=== PATIENT | male | born 1965 | race Caucasian/White ===

== ENCOUNTER 2022-12-27 09:38 | Emergency (ER) | payer OTHER, SELFPAY ==
[2022-12-27] VITALS (15 sets, daily range): BP systolic 130–168; BP diastolic 81–117; PULSE 86–103; RESP 14–24; TEMP 36.8; O2SAT 94–100
[2022-12-27] MEDS: SODIUM CHLORIDE 0.9% IV 1,000 ML 999 ML IV CONT (10:15)
[2022-12-27 10:22] LABS: Basophils Absolute Auto 0.1 K/mm3 (0.0-0.1); Basophils Percent Auto 2.3 % (0.2-1.2); Eosinophils Percent Auto 0.2 % (0-4.4); Hematocrit 36.1 % (42.0-52.0); Hemoglobin 11.6 g/dL (14.0-18.0); Immature Granulocyte Absolute 0.01 K/mm3 (0.00-0.031); Immature Granulocyte Percent A 0.2 % (0-0.5); Lymphocytes Absolute Auto 1.16 K/mm3 (0.9-3.2); Lymphocytes Percent Auto 26.4 % (18.3-44.2); Mean Corpuscular HGB Conc 32.1 g/dl (32-36); Mean Corpuscular Hemoglobin 25.6 pg (26-34); Mean Corpuscular Volume 79.5 fl (80-100); Mean Platelet Volume 8.6 fl (7.4-10.4); Monocytes Absolute Auto 0.6 K/mm3 (0.1-0.6); Monocytes Percent Auto 14.1 % (2.6-8.5); Neutrophils Absolute Auto 2.5 K/mm3 (1.3-6.7); Neutrophils Percent Auto 56.8 % (45.5-73.1); Platelet Count Result 231 k/mm3 (150-375); Red Blood Count 4.54 M/mm3 (4.6-6.20); Red Cell Distribution Width 20.1 % (11.5-14.5); White Blood Count 4.4 K/mm3 (4.5-10.0)
[2022-12-27 10:31] LABS: Ethanol 231 mg/dL (<10)
--- NOTE | 2022-12-27 10:32 | PC.NURSE ---
[id number] 88% while sleeping on room air.
[2022-12-27 10:35] LABS: Partial Thromboplastin Time 31.3 SECONDS (22.3-36.8); Prothrombin Time 13.8 Seconds (11.1-14.7)
[2022-12-27 11:02] LABS: Appearance Urine Clear (Clear); Bacteria Urine None Seen /hpf; Bilirubin Urine Negative (Negative); Blood Urine Negative (Negative); Color Urine Yellow (Yellow); Glucose Urine UA Negative (Negative); Ketones Urine Trace mg/dL (Negative); Leukocyte Esterase Ur Negative LEU/UL (Negative); Nitrate Urine Negative (Negative); Non Pathogenic Casts 0-2; Protein Urine Trace mg/dL (Negative); RBC Urine 0-2 /hpf (0-2); Specific Grav Ur 1.008 (1.001-1.035); Squamous Epithelial Cell Urine None seen /hpf (Few); Urobilinogen Urine 0.2 mg/dL (<2.0); WBC Urine 0-5 /hpf; pH Urine 5.5 (5.0-9.0)
[2022-12-27 11:02] LABS: Alanine Aminotransferase 27 U/L (6-50); Alkaline Phosphatase 82 U/L (38-126); Anion Gap 13 mmol/L (8-16); Aspartate Amino Transferase 45 U/L (17-59); Bilirubin,Total 0.6 mg/dL (0.2-1.3); Blood Urea Nitrogen 14 mg/dL (9-20); Calcium 8.2 mg/dL (8.4-10.2); Carbon Dioxide 26 mmol/L (22-30); Chloride 93 mmol/L (98-107); Estimated Glomerular Filt Rate > 60; Glucose 117 mg/dL (65-110); Potassium 3.7 mmol/L (3.4-5.0); Sodium 132 mmol/L (137-145)
[2022-12-27 11:09] LABS: Add Urine Microscopic? YES
[2022-12-27 11:11] LABS: Amphetamine Screen Urine Negative (Negative); Barbiturate Screen Urine Negative (Negative); Benzodiazepines Screen Urine Negative (Negative); Cannabinoid Screen Urine Negative (Negative); Cocaine Screen Urine Negative (Negative); Methadone Screen Urine Negative (Negative); Opiate Screen Urine Negative (Negative); Phencyclidine Screen Urine Negative (Negative)
--- NOTE | 2022-12-27 13:02 | ED.GENADULT ---
HPI - General Adult General Chief complaint: Alcohol Stated complaint: alcohol withdrawal Time Seen by Provider: 12/27/22 09:51 History of Present Illness HPI narrative: Patient is a 57-year-old male who presents ER with concerns for alcohol withdrawal. Patient reports he has been drinking multiple 1.5 L of hard liquor over the last few days. He reports that he tried to wean himself off of the liquor overnight and his last drink was 1 hour ago. He is concerned he is withdrawing from alcohol and would like some Ativan. He feels slightly sick to his stomach. There is no vomiting. No fevers or chills or sweats. No chest pain or chest pressure. The last time that the patient was free of drinking alcohol was 4 days ago. He went 2 days without drinking he has no history of alcohol withdrawal seizures. His last stent in rehab was in [place] several months ago. He is currently in town visiting from [place]. He has no SI/HI. Patient has brought a bag of [employer] and a glass of water with him to the ER. Related Data Allergies Allergy/AdvReac Type Severity Reaction Status Date / Time No Known Allergies Allergy Verified 12/27/22 09:53 Review of Systems Review of Systems: All systems reviewed & are unremarkable except as noted in HPI and below Constitutional: Constitutional: Denies chills and Denies fever(s) ENT: Denies nasal congestion and Denies sore throat Cardiovascular: Cardiovascular: Denies chest pain, Denies rapid heart rate and Denies radiating jaw, neck or arm pain Respiratory: Respiratory: Denies cough and Denies dyspnea Gastrointestinal: Gastrointestinal: Denies abdominal pain, Reports nausea and Denies vomiting PMFSH Past Medical History Medical History (Updated 12/27/22 @ 19:01 by Lopez Brooks MD) Alcoholism Surgical History Surgical History (Updated 12/27/22 @ 19:01 by Lopez Brooks MD) No pertinent past surgical history Social History Social History (Updated 12/27/22 @ 19:01 by Lopez Brooks MD) Alcohol intake: current Exam Narrative: GENERAL: Well-appearing, well-nourished, and in no acute distress. HEAD: Normocephalic, atraumatic. EYES: PERRL and EOMI. ENT: Mucous membranes moist. CHEST: Clear to auscultation. No respiratory distress. HEART: Regular rate and rhythm. Normal peripheral pulses. ABDOMEN: Soft, nontender, nondistended. EXTREMITIES: Normal range of motion. No edema. SKIN: Warm, dry, no rash. NEURO: Alert and oriented x3. PSYCH: Normal mood and affect. Course Course Emergency Course: Patient resting comfortably. Patient is intoxicated not actively withdrawing from alcohol. He is awake and alert and steady, he is contacted a ride will take him home. Vital Signs Vital signs: Vital Signs Temperature 98.3 F 12/27/22 09:42 Pulse Rate 93 12/27/22 09:42 Respiratory Rate 18 12/27/22 09:42 Blood Pressure 130/81 12/27/22 09:42 Pulse Oximetry 98 12/27/22 09:42 Oxygen Delivery Room Air 12/27/22 09:42 Temperature 98.3 F 12/27/22 09:42 Pulse Rate 86 12/27/22 13:22 Respiratory Rate 14 12/27/22 13:22 Blood Pressure 135/83 12/27/22 13:22 Pulse Oximetry 99 12/27/22 13:22 Oxygen Delivery Nasal Cannula 12/27/22 10:31 Oxygen Flow Rate 2 12/27/22 10:31 Medical Decision Making Vital Signs Vital Signs: Vital Signs Temperature 98.3 F 12/27/22 09:42 Pulse Rate 93 12/27/22 09:42 Respiratory Rate 18 12/27/22 09:42 Blood Pressure 130/81 12/27/22 09:42 Pulse Oximetry 98 12/27/22 09:42 Oxygen Delivery Room Air 12/27/22 09:42 Temperature 98.3 F 12/27/22 09:42 Pulse Rate 86 12/27/22 13:22 Respiratory Rate 14 12/27/22 13:22 Blood Pressure 135/83 12/27/22 13:22 Pulse Oximetry 99 12/27/22 13:22 Oxygen Delivery Nasal Cannula 12/27/22 10:31 Oxygen Flow Rate 2 12/27/22 10:31 Lab Data 12/27/22 10:16 12/27/22 10:38 Labs: Lab Results
== END 2022-12-27 13:37 | disposition home or self-care (01) ==
PROVIDERS: Emergency Provider Emergency Medicine
DX: F10.229 Alcohol dependence with intoxication, unspecified (principal); Y90.7 Blood alcohol level of 200-239 mg/100 ml
CPT/HCPCS: 36415; 80053; 80307; 81001; 84443; 85025; 85610; 85730; 96360; 99283; J7030

== ENCOUNTER 2023-05-02 12:12 | Emergency (ER) | payer SELFPAY | END 2023-05-02 12:28 | disposition left against medical advice (07) | DX: Z53.21 Procedure and treatment not carried out due to patient leaving prior to being seen by health care provider (principal) | CPT/HCPCS: 99199 ==